=== PATIENT | male | born 1960 | race Caucasian/White ===

== ENCOUNTER → 2019-09-21 | Outpatient (REF) | payer BC ==
[2019-09-21 18:21] LABS: APPEARANCE, URINE CLEAR (CLEAR); BACTERIA, URINE AUTO NEGATIVE (NEGATIVE); BILIRUBIN, URINE AUTO NEGATIVE (NEGATIVE); BLOOD, URINE BLOOD NEGATIVE (NEGATIVE); COLOR, URINE YELLOW (YELLOW); GLUCOSE, URINE (UA) AUTO NEGATIVE (NEGATIVE); KETONE, URINE AUTO NEGATIVE (NEGATIVE); LEUKOCYTE ESTERASE, URINE AUTO TRACE (NEGATIVE); MUCUS, URINE SMALL (NEGATIVE); NITRITE, URINE AUTO NEGATIVE (NEGATIVE); PROTEIN, URINE AUTO NEGATIVE (NEGATIVE); RBC, URINE AUTO 2 /HPF (0-3); SPECIFIC GRAVITY URINE AUTO 1.021 (1.002-1.035); SQUAMOUS EPITHELIAL CELL UR AU 0 /HPF (0-6); UROBILINOGEN, URINE AUTO 0.2 mg/dL (0.0-2.0); WBC, URINE AUTO 5 /HPF (0-3)
== END ==
LOC: M SMT 17:18
PROVIDERS: ATTEND Nurse Practitioner Family
DX: N20.0 Calculus of kidney (principal); R35.0 Frequency of micturition

== ENCOUNTER 2019-11-18 08:20 | Day surgery (SDC) | payer BC ==
[~2019-11-18] VITALS: Ht 190.5 cm; Wt 133.4 kg
[~2019-11-18 08:20] MED LIST: CIPROFLOXACIN 400 MG in IV 1 EA IV ONE; LEVO200T4 PO; LOSA25TA14 PO; LR 1,000 ML IV ONE
[2019-11-18] MEDS ORDERED: MIDAZOLAM INJ 2 MG/2 ML VIAL (J2250) As Ordered ONE (11:02)
[2019-11-18] MEDS ORDERED: fentaNYL 100 MCG/2 ML INJECTION (J3010) As Ordered ONE (11:02)
[2019-11-18] MEDS ORDERED: propofoL 200 MG/20 ML VIAL As Ordered ONE (11:03)
[2019-11-18] MEDS ORDERED: dexameTHASONE 4 MG/ML 1ML VIAL (J1100) As Ordered ONE (11:03)
[2019-11-18] MEDS ORDERED: ONDANSETRON 4MG/2ML VIAL (J2405) As Ordered ONE (11:03)
[2019-11-18] MEDS ORDERED: LIDOCAINE 2% INJ 100 MG/5 ML SDV (FOR ANES.) As Ordered ONE (11:03)
[2019-11-18] MEDS ORDERED: CONRAY-60 60% 50ML VIAL (Q9961) As Ordered ONE (11:07)
--- NOTE | 2019-11-18 13:07 | REP ---
Clinical: Ureteral stent placement. Technique: Intraoperative fluoroscopic imaging. Findings: Two submitted images demonstrate mild fullness to the right collecting system and subsequent satisfactory right ureteral stent placement. Total fluoroscopic time 20 seconds. Impression: Satisfactory right ureteral stent placement. Electronically Signed by Junior Byrne MD 11/18/2019 12:58 P
[2019-11-18] MEDS ORDERED: MORPHINE 2 MG/ML 1ML VIAL (J2270) IV PRN (13:15)
[2019-11-18] MEDS ORDERED: ONDANSETRON 4MG/2ML VIAL (J2405) IV PRN (13:15)
[2019-11-18] MEDS ORDERED: fentaNYL 100 MCG/2 ML INJECTION (J3010) IV PRN (13:15)
[2019-11-18] MEDS ORDERED: LR 1,000 ML IV SCH (13:15)
[2019-11-18] MEDS: PERCOCET 5MG/325MG TAB PO PRN ×2 (13:42→14:18)
[2019-11-18] MEDS ORDERED: PERCOCET 5MG/325MG TAB PO PRN (14:16)
[2019-11-18] MEDS ORDERED: oxyBUTYnin 5 MG TAB PO PRN (14:16)
[2019-11-18] MEDS ORDERED: ONDANSETRON 4 MG ORAL DISINTEGRATING TAB (Q0162 PER 1MG) As Ordered ONE (15:15)
[2019-11-18 15:24] VITALS: BP 179/100
[2019-11-18] MEDS ORDERED: ONDANSETRON 4 MG ORAL DISINTEGRATING TAB (Q0162 PER 1MG) XX SCH (15:30)
--- NOTE | 2019-11-19 13:20 | RO ---
DATE OF PROCEDURE: 11/18/2019 PREPROCEDURE DIAGNOSIS: Right kidney and ureteral stones. POSTPROCEDURE DIAGNOSIS: Right kidney and ureteral stones. PROCEDURE: Cystoscopy, right ureteroscopy with laser lithotripsy and basket extraction of stones, right retrograde pyelogram with intraoperative interpretation of images, right ureteral stent placement. SURGEON: Antonio Jolly MD PASSENGER BARGE MASTER: None. ANESTHESIA: General. OPERATIVE INDICATIONS: This is a 59-year-old male who was found to have an obstructing, approximately 6 mm distal right ureteral stone as well as additional stones in the right kidney measuring up to around 7-8 mm in size. He was brought to the operating room today for treatment. DESCRIPTION OF PROCEDURE: The patient brought to the operating room and general anesthesia induced. Prophylactic antibiotics were infused. He was placed in dorsal lithotomy position, prepped and draped in the usual sterile fashion. A rigid cystoscope was inserted into the urethral meatus and advanced into the bladder. A guidewire was advanced up the right collecting system. I went up the right collecting system with a short semi-rigid ureteroscope and within the distal ureter a 6 mm stone was seen. The stone was fragmented into smaller pieces using a 200 micron laser fiber, then all the fragments were removed using basket. I then advanced the ureteral access sheath up the right collecting system. I went up the access sheath with a flexible ureteroscope and examined the right kidney thoroughly. There were approximately three stones inside the right kidney with the largest measuring around 7-8 mm in size. A 200 micron laser fiber was utilized to fragment the stones into several pieces and then all the fragments were removed using a basket. A retrograde pyelogram was performed and it was notable for mild right hydronephrosis but no extravasation. I then withdrew the ureteroscope along with the access sheath and no additional stones were seen within the ureter. I then utilized the wire to advance a 6 [place] x 22-32 cm JJ ureteral stent up into the right collecting system. The wire was then removed and there were adequate curls of the stent in the right renal pelvis and in the bladder. The bladder was emptied of all fluid and this marked the conclusion of the procedure. The patient was then taken out of dorsal lithotomy position, awakened from anesthesia and transported to recovery room in stable condition. Estimated blood loss: 5 mL. Complications: None. Specimens: Kidney stone fragments. Plan: The patient will followup in clinic in a few weeks for stent removal. MTDD
== END 2019-11-18 15:24 | disposition home or self-care (01) ==
LOC: M SDC 08:20
PROVIDERS: ATTEND Urology
DX: N20.2 Calculus of kidney with calculus of ureter (principal); I10 Essential (primary) hypertension; E03.9 Hypothyroidism, unspecified; L30.9 Dermatitis, unspecified; Z87.442 Personal history of urinary calculi; Z88.5 Allergy status to narcotic agent; Z79.899 Other long term (current) drug therapy
CPT/HCPCS: 52356; 74420; 82365; 88300; C1769; C2617; J0744; J1100; J2250; J2405; J3010; Q0162; Q9961

== ENCOUNTER → 2020-09-12 | Outpatient (REF) | payer BC ==
[~2020-09-12] MED LIST changes: -CIPROFLOXACIN 400 MG in IV 1 EA IV ONE; -LR 1,000 ML IV ONE
[2020-09-12 14:56] LABS: AMORPHOUS SEDIMENT MODERATE (NEGATIVE); APPEARANCE, URINE TURBID (CLEAR); BACTERIA, URINE AUTO NEGATIVE (NEGATIVE); BILIRUBIN, URINE AUTO NEGATIVE (NEGATIVE); BLOOD, URINE BLOOD NEGATIVE (NEGATIVE); COLOR, URINE YELLOW (YELLOW); GLUCOSE, URINE (UA) AUTO NEGATIVE (NEGATIVE); KETONE, URINE AUTO NEGATIVE (NEGATIVE); LEUKOCYTE ESTERASE, URINE AUTO TRACE (NEGATIVE); MUCUS, URINE SMALL (NEGATIVE); NITRITE, URINE AUTO POSITIVE (NEGATIVE); PROTEIN, URINE AUTO NEGATIVE (NEGATIVE); RBC, URINE AUTO 0 /HPF (0-3); SPECIFIC GRAVITY URINE AUTO 1.021 (1.002-1.035); SQUAMOUS EPITHELIAL CELL UR AU 0 /HPF (0-6); WBC, URINE AUTO 0 /HPF (0-3)
== END ==
LOC: M SMT 13:16
PROVIDERS: ATTEND Nurse Practitioner Family
DX: R39.15 Urgency of urination (principal)

== ENCOUNTER 2020-10-11 10:31 | Day surgery (SDC) | payer BC ==
[~2020-10-11] VITALS: Ht 190.5 cm; Wt 132.4 kg
[~2020-10-11 10:31] MED LIST changes: +CIPROFLOXACIN 400 MG in IV 1 EA IV ONE; +LIDOCAINE 1% MDV 20ML VIAL SQ PRN; +LR 1,000 ML IV ONE
[2020-10-11] MEDS ORDERED: MIDAZOLAM INJ 2MG/2ML VIAL (J2250 PER 1MG) As Ordered ONE (12:09)
[2020-10-11] MEDS ORDERED: LIDOCAINE 2% 100MG/5ML SDV (FOR ANES.) As Ordered ONE (12:09)
[2020-10-11] MEDS ORDERED: LACRILUBE (AKWA TEARS) OPHTH OINT 3.5 GM As Ordered ONE (12:09)
[2020-10-11] MEDS ORDERED: propofoL 200 MG/20 ML VIAL As Ordered ONE (12:09)
[2020-10-11] MEDS ORDERED: KETOROLAC 60MG 2ML VIAL As Ordered ONE (12:48)
[2020-10-11] MEDS ORDERED: ONDANSETRON 4MG/2ML VIAL As Ordered ONE (12:48)
[2020-10-11] MEDS ORDERED: ePHEDrine SULFATE 25 MG/5 ML(5MG/ML) SYRINGE As Ordered ONE (12:57)
[2020-10-11] MEDS ORDERED: LR 1,000 ML IV SCH (13:45)
[2020-10-11] MEDS ORDERED: ONDANSETRON 4MG/2ML VIAL IV PRN (13:45)
[2020-10-11] MEDS ORDERED: fentaNYL 100 MCG/2 ML INJECTION (J3010) IV PRN (13:45)
--- NOTE | 2020-10-11 13:58 | RO ---
OPERATIVE NOTE DATE OF OPERATION: 10/11/2020 PREOPERATIVE DIAGNOSIS: Bladder stones. POSTOPERATIVE DIAGNOSIS: Bladder stones. PROCEDURE: Cystoscopy, laser cystolitholapaxy. SURGEON: Antonio Jolly MD DIRECTOR COMPLIANCE: None. ANESTHESIA: General. OPERATIVE INDICATIONS: This is a 60-year-old male who on recent CT scan was found to have two bladder stones measuring up to approximately 3 cm in size. He was brought to the operating room today for treatment. DESCRIPTION OF PROCEDURE: The patient was brought to the operating room and general anesthesia was induced. Prophylactic antibiotics were infused. He was placed in the dorsolithotomy position, prepped, and draped in the usual sterile fashion. At this point, a resectoscope was inserted into the urethral meatus and advanced to the bladder using the visual obturator. Once in the bladder, the patient was found to have two stones with the largest one measuring around 3 cm and the other one probably about 1.5 cm in size. Both of these stones were then fragmented into several smaller pieces using a 1000 micron laser fiber. All the fragments were then removed from the bladder using a Urovac evacuator. Once satisfied all the stone fragments had been removed, I checked for hemostasis and there was good hemostasis inside the bladder. There were no lesions inside the bladder. At this point, the resectoscope was removed and of note, the patient had bilobar benign prostatic hyperplasia with only [id number] outlet obstruction. There were no urethral strictures. This marked conclusion of the procedure. The patient was then taken out of the dorsolithotomy position, awakened from anesthesia, and transported to the recovery room in stable condition. ESTIMATED BLOOD LOSS: 5 mL. COMPLICATIONS: None. SPECIMEN(S): Bladder stone fragments. PLAN: We will have the patient follow-up in the urology clinic in a few weeks for a postoperative visit. UDAY
[2020-10-11] MEDS ORDERED: ACETAMINOPHEN TAB 650MG DOSE (2X325MG) PO PRN (14:45)
[2020-10-11 14:50] VITALS: BP 129/83
== END 2020-10-11 14:50 | disposition home or self-care (01) ==
LOC: M SDC 10:31
PROVIDERS: ATTEND Urology
DX: N21.0 Calculus in bladder (principal); I10 Essential (primary) hypertension; E03.9 Hypothyroidism, unspecified; Z79.899 Other long term (current) drug therapy; Z88.5 Allergy status to narcotic agent
CPT/HCPCS: 52318; 82365; 88300; C1769; J0744; J1885; J2250; J2405